=== PATIENT | female | born 1955 | race Caucasian/White ===

== ENCOUNTER 2016-12-21 17:51 | Emergency (ER) | payer OTHER ==
[~2016-12-21] VITALS: Ht 165.1 cm; Wt 59.0 kg
[~2016-12-21 17:51] MED LIST: ALPRAZOLAM2 M2 PO; ALPRAZOLAM2 MG PO; AMBIEN (MONOGRAP5 MG PO; AMBIEN 10MG10 MG PO; AMBIEN10 M1 PO; ASPIRIN81 M4 PO; ATIVAN2 MG PO; ATORVASTATIN CA20 M1 PO; BYSTOLIC5 M1 PO; CARDIZEM CD180 M1 PO; COMBIVENT RESPIM4 GM INH; COMBIVENT1 ARO INH; CYCLOBENZAPRINE5 M2 PO; FLEXERIL 5MG TAB5 MG PO; FLONASE120 SPRAY/ NASB; FLUTICASONE PRO16 GM NAS; IMIPRAMINE HCL50 M1 PO; KEPPRA500 M1 PO; LASIX40 MG PO; LISINOPRIL10 M1 PO; LISINOPRIL30 M1 PO; MINIPRESS1 MG PO; MIRTAZAPINE15 M2 PO; MULTIVITAMIN1 TAB PO; NATURAL IRON65 MG PO; NEFAZODONE HCL PO; NEFAZODONE HCL100 M1 PO; NEFAZODONE100 MG PO; OMEPRAZOLE D/R20 MG PO; OMEPRAZOLE20 MG PO; ONDANSETRON ODT4 MG PO; PROAIR HFA8.5 GM INH; QUALAQUIN PO; QUALAQUIN324 MG PO; QVAR8.7 G1 INH; TRAMADOL50 MG PO; TRAZODONE HCL50 M1 PO
[2016-12-21] MEDS ORDERED: ALPRAZOLAM2 M2 PO (18:27)
[2016-12-21] MEDS ORDERED: ZOLPIDEM TARTRA10 M1 PO (18:29)
[2016-12-21] MEDS ORDERED: COMBIVENT RESPIM4 GM INH (18:30)
[2016-12-21] MEDS ORDERED: IMIPRAMINE HCL50 M1 PO (18:30)
[2016-12-21] MEDS ORDERED: NEFAZODONE HCL100 M1 PO ×2 (18:31→18:32)
[2016-12-21] MEDS ORDERED: ADVAIR HFA 230-12 GM INH (18:31)
[2016-12-21] MEDS ORDERED: PRAZOSIN HCL2 M1 PO (18:33)
--- NOTE | 2016-12-21 18:42 | ED HEAD/FACIAL INJ COMPLAINT ---
History of Present Illness General Chief Complaint: Facial or Head Injury Stated Complaint: S/P FALL YESTERDAY HIT HEAD DIZZINESS Source: patient, family Exam Limitations: no limitations Vital Signs & Intake/Output Vital Signs & Intake/Output Vital Signs Date Time Temp Pulse Resp B/P Pulse O2 O2 Flow FiO2 Ox Delivery Rate 12/21 2225 98.5 107 18 145/87 97 Room Air 12/21 1801 98.9 104 18 93/63 95 Room Air Allergies Coded Allergies: Sulfa (Sulfonamide Antibiotics) (Intermediate, HIVES 03/03/16) Reconcile Medications Albuterol Sulfate (Proair Hfa) 8.5 GM HFA.AER.AD 2 PUF INH EVERY 6HRS- NEEDED PRN ASTHMA Alprazolam 2 MG TABLET 1 TAB PO TID ANXIETY (Reported) Aspirin (Aspirin*) 81 MG TAB.CHEW 1 TAB PO DAILY HEART Atorvastatin Calcium 20 MG TABLET 1 TAB PO 1700 HEART Cyclobenzaprine HCl 5 MG TABLET 1 TAB PO TID MUSCLE SPASMS (Reported) Diltiazem HCl (Cardizem Cd) 180 MG CAP.ER.24H 1 CAP PO DAILY TACHGYCARDIA Fluticasone Propionate 16 GM SPRAY.SUSP 2 SPRAY NUBIA BID NASAL CONGESTION ( Reported) Fluticasone Propionate/Salme (Advair Hfa 230-21 Mcg Inhaler) 230 MCG-21 MCG/ ACTUATION HFA.AER.AD 1 PUFF INH BID ASTHMA (Reported) Imipramine HCl 50 MG TABLET 1 TAB PO DAILY MENTAL HEALTH (Reported) Ipratropium/Albuterol Sulfate (Combivent Respimat Inhal Deep Water) 20 MCG-100 MCG/ ACTUATION MIST.INHAL 2 PUFF INH TID ASTHMA (Reported) Levetiracetam (Keppra) 500 MG TABLET 500 MG PO BID seizures Lisinopril 10 MG TABLET 10 MG PO DAILY high blood pressure Mirtazapine 15 MG TABLET 1 TAB PO QPM MENTAL HEALTH (Reported) Nebivolol HCl (Bystolic) 5 MG TABLET 1 TAB PO DAILY HYPERTENSION Nefazodone HCl 100 MG TABLET 1 TAB PO QAM MENTAL HEALTH (Reported) Nefazodone HCl 100 MG TABLET 3 TAB PO QPM MENTAL HEALTH (Reported) Prazosin HCl (Unknown Strength) CAPSULE (Unknown Dose) PO QPM NIGHTMARES ( Reported) Zolpidem Tartrate 10 MG TABLET 1 TAB PO QPM SLEEP (Reported) Triage Note: PT TO TRIAGE S/P 2 FALLS. FIRTS FALL WAS LAST NIGHT WHEN PT FELT DIZZY AND FELL BACKWARDS, HIT HEAD, +LOC. SECOND FALL WAS 30MIN [employer] WHEN PT SLIPPED AND FELL AND HIT R YEPEZ, +SKIN TEAR TO L YEPEZ, BLEEDING CONTROLLED. PT DENIES BLOOD THINNERS. PER PTS PT WEEK AND SLIGHTLY CONFUSED. VSS. Triage Nurses Notes Reviewed? yes Onset: Abrupt Severity: moderate Location: occipital Loss of Consciousness: no loss of consciousness Associated Symptoms: CONFUSION HPI: 21-year-old female presents here with her for chief complaint of altered mental status. According to the patient has been yesterday he noticed that she wasn't acting herself, talking about her mother and sisters in the house when he went there. She is status post a slip and fall in the driveway on Thursday while cleaning up the car afterwards no. At that time she had the back of her kids. She is complaining of a little bit of headache and shoulder pain but got better over the next few days. She wasn't confused until last night. Today he also felt she wasn't acting herself and decided to come to the ER. We told her that they relieving she rushed down the stairs with her socks on and fell hit the back of her head again and sustain some abrasions to bilateral anterior extremity is. She states that she didn't feel confused yesterday. Patient is awake and alert and oriented 3 however very fidgety. She is alert slit her spine on certain questions. She denies any illicit drug use but does use her Xanax as prescribed by Dr. wilson. Denies any alcohol use. She has a history of smoking but no home use of CPAP or 02. No history of previous confusion. (JUVENCIO YANG,NUBIA) Past History Travel History Traveled to [place] past 21 day No Medical History Any Pertinent Medical History? see below for history Neurological: seizure EENT: NONE Cardiovascular: hypertension, hyperlipidemia Respiratory: asthma, bronchitis, COPD Gastrointestinal: lactose intolerance Hepatic: NONE Renal: NONE Musculoskeletal: chronic back pain, degen joint disease, fibromyalgia, osteoarthritis, rheumatoid arthritis, sciatica, spinal stenosis, CHRONIC LEFT KNEE PAIN Psychiatric: anxiety, depression, insomnia Endocrine: NONE Blood Disorders: NONE Cancer(s): NONE EXAMINATION SCORER/Reproductive: NONE History of MRSA: No History of VRE: No History of CDIFF: Yes Pneumonia Vaccine: 06/30/16 Tetanus Vaccine: 08/26/13 Surgical History Surgical History: knee replacement, BACK SX Psychosocial History Who do you live with Spouse Services at Home None What is your primary language Albanian Tobacco Use: Current Daily Use Daily Tobacco Use Amount/Type: => 5 Cigarettes daily Family History Family History, If Any: MOTHER, ; Cause: Stroke. Hx Contributory? No (UNBIA HENNING MD) Review of Systems Review of Systems Constitutional: Denies: chills, fever, malaise, weakness. EENTM: Reports: no symptoms. Respiratory: Denies: cough, short of breath. Cardiovascular: Denies: chest pain, palpitations, peripheral edema. GI: Denies: abdominal pain. Genitourinary: Reports: no symptoms. Musculoskeletal: Reports: no symptoms. Skin: Reports: no symptoms. Neurological/Psychological: Reports: anxiety, confusion, headache. Hematologic/Endocrine: Reports: bleeding (ANTERIOR LEGS). Denies: bruising, polyuria. Immunologic/Allergic: Denies: splenectomy. All Other Systems: Reviewed and Negative (NUBIA HENNING MD) Physical Exam Physical Exam General Appearance: well developed/nourished, alert, awake, anxious, mild distress Head: atraumatic, normal appearance Eyes: Bilateral: PERRL, EOMI. Ears, Nose, Throat: normal pharynx, normal ENT inspection, hearing grossly normal Neck: normal inspection, supple Respiratory: normal breath sounds Cardiovascular: regular rate/rhythm Gastrointestinal: soft, non-tender Back: normal inspection Extremities: normal inspection, normal range of motion, no edema Psychiatric: awake, alert, oriented x 3 Cranial Nerves: normal hearing, PERRL, SLOW SPEECH Coordination/Gait: normal gait Motor/Sensory: no motor/sensory deficits Skin: intact, normal color, warm/dry Lymphatic: no anterior cervical nathalia (NUBIA HENNING MD) Progress Differential Diagnosis: ICH, INTOXICATION, POLYSUBSTANCE ABUSE Plan of Care: Orders Procedure Date/time Status Nothing by Mouth 12/22 B Active Vital Signs 12/21 2148 Active EKG 12/21 1842 Active URINE DRUGS OF ABUSE 12/21 1841 Complete PARTIAL THROMBOPLASTIN TIME 12/21 1841 Complete PROTHROMBIN TIME 12/21 1841 Complete AMMONIA 12/21 1841 Complete ETHANOL 02/05 1842 Complete COMPREHENSIVE METABOLIC PANEL 12/21 1841 Complete CBC WITHOUT DIFFERENTIAL 12/21 1841 Complete Laboratory Tests 12/21/162032: Urine Opiates Screen 155.00, Methadone Screen 129, Barbiturate Screen < 60, Ur Phencyclidine Scrn 10.70, Amphetamines Screen < 100, U Benzodiazepines Scrn > 800 H, Urine Cocaine Screen < 50, Urine Cannabis Screen < 5.00 12/21/16 1853: Anion Gap 10, Estimated GFR > 60, BUN/Creatinine Ratio 17.8, Glucose 88, Calcium 8.8, Total Bilirubin 0.6, AST 21, ALT 35, Alkaline Phosphatase 94, Ammonia < 9 L, Total Protein 7.1, Albumin 4.2, Globulin 2.9, Albumin/Globulin Ratio 1.4, PT 11.5, INR 1.10, APTT 31, CBC w Diff NO MAN DIFF REQ, RBC 4.13 L, MCV 80.7 L, MCH 26.9 L, RDW 17.6 H, MPV 6.9 L, Gran % 79.6 H, Lymphocytes % 13.3 L, Monocytes % 6.7, Eosinophils % 0.2, Basophils % 0.2, Absolute Granulocytes 9.4 H, Absolute Lymphocytes 1.6, Absolute Monocytes 0.8 H, Absolute Eosinophils 0, Absolute Basophils 0, PUBS MCHC 33.3, Serum Alcohol < 10.0 Diagnostic Imaging: Viewed by Me: CT Scan. Discussed w/RAD: CT Scan. Initial ED EKG: SINUS TACHYCARDIA AT 100 BPM, BASELINE ARTIFACT Hand-Off Endorsed To: CANDICE DELGADO MD Endorsed Time: 1899 Pending: CT, labs (NUBIA HENNING MD) Departure Departure Disposition: STILL A PATIENT Condition: Stable Clinical Impression Primary Impression: Altered mental status Referrals: MARTIN AGUILERA MD (PCP/Family) Departure Forms: Customer Survey General Discharge Information (NUBIA HENNING MD) PA/SHOT DROPPER Co-Sign Statement Statement: ED Attending supervision documentation- [] I saw and evaluated the patient. I have also reviewed all the pertinent lab results and diagnostic results. I agree with the findings and the plan of care as documented in the PA's/SHOT DROPPER's documentation. [x] I have reviewed the ED Record and agree with the PA's/SHOT DROPPER's documentation. [] Additions or exceptions (if any) to the PAs/SHOT DROPPER's note and plan are summarized below: [] (SANDY YANG,CANDICE [place]) will follow up with dr. hassan (neurosurgeon) tomorrow (SANDY YANG,CANDICE [place]inas)
[2016-12-21 19:20] LABS: ABSOLUTE BASOPHIL COUNT 0 /CUMM (0.0-0.2); ABSOLUTE EOSINOPHIL COUNT 0 /CUMM (0.0-0.7); ABSOLUTE GRANULOCYTE CT 9.4 /CUMM (1.4-6.5); ABSOLUTE LYMPH COUNT 1.6 /CUMM (1.2-3.4); ABSOLUTE MONOCYTE COUNT 0.8 /CUMM (0.10-0.60); BASOPHIL % 0.2 % (0.0-2.0); EOSINOPHIL % 0.2 % (0-5); GRANULOCYTE % 79.6 % (42.2-75.2); HEMATOCRIT 33.3 % (37-47); MEAN CORPUSCULAR HGB 26.9 PG (27.0-31.0); MEAN CORPUSCULAR HGB CONC 33.3 G/DL (33.0-37.0); MEAN CORPUSCULAR VOLUME 80.7 FL (81.0-99.0); MEAN PLATELET VOLUME 6.9 FL (7.4-10.4); PLATELET COUNT 413 /CUMM (130-400); RBC DISTRIBUTION WIDTH 17.6 % (11.5-14.5); RED BLOOD CELL CT 4.13 /CUMM (4.20-5.40); WHITE BLOOD CELL COUNT 11.8 /CUMM (4.8-10.8)
[2016-12-21 19:29] LABS: PT 11.5 SEC (9.4-12.5); PTT 31 SEC (25-37)
--- NOTE | 2016-12-21 21:10 | CT SCAN REPORT ---
EXAMINATION: CT OF THE HEAD AND CERVICAL SPINE WITHOUT CONTRAST CLINICAL INFORMATION: AMS, FELL AND HIT HEAD ON THURSDAY. COMPARISON: 06/29/[address] TECHNIQUE: Contiguous axial imaging was performed from the skull base to vertex. Soft tissue and bony algorithms were evaluated. Coronal reformatted images were obtained on the technologist workstation. Following this, multiple serial thin slice helical CT scan images through the cervical spine were obtained. Soft tissue and bony algorithms were evaluated. Coronal and sagittal reformatted images were obtained on the technologist workstation. DLP: 1145 mGy cm FINDINGS: Head CT: The ventricles are normal in size and symmetry. There is no evidence of acute intracranial hemorrhage or territorial infarction. No abnormal mass-effect or midline shift is seen. Haider to white matter differentiation is well preserved. No extra-axial fluid collections are identified. There is no abnormal attenuation within the brain parenchyma. The osseous structures and soft tissues are normal. The mastoid air cells and visualized portions of the paranasal sinuses are well-aerated. Cervical spine CT: No prevertebral soft tissue swelling is appreciated. The bones are in normal anatomic alignment with no acute fracture or spondylolisthesis. Patient is status post anterior spinal fixation from C4 to C6. Hardware appears to be intact. Vertebral body heights and disc heights are otherwise preserved. Posterior elements are unremarkable. Visualized airway and lung apices are unremarkable. Visualized thyroid gland unremarkable. IMPRESSION: Head CT: No acute intracranial pathology. C-spine: No acute bony abnormality in the cervical spine. Chronic appearing and postoperative changes noted.
[2016-12-21 22:26] VITALS: BP 145/87
== END 2016-12-21 22:29 ==
LOC: ERH 17:51
PROVIDERS: Emergency Medicine
DX: R41.82 Altered mental status, unspecified (principal)
CPT/HCPCS: 80307; 93005; 93010; G0480